=== PATIENT | male | born 1970 | race Caucasian/White ===

== ENCOUNTER → 2020-04-14 12:03 | Outpatient (CLI) | payer OTHER, SELFPAY ==
--- NOTE | ~2020-04-14 | XR_ITS ---
EXAMINATION: XR hand RT 2V, XR wrist RT w scaphoid EXAM DATE: 04/14/2020 12:45 INDICATION: Having pain in right hand/wrist/forearm and elbow x couple weeks after weight-lifting. Pa in mostly located around 1st carpal/metacarpal area. No surgery. TECHNIQUE: Right wrist frontal, frontal with ulnar deviation, oblique and lateral projections obtain ed and reviewed. Right hand frontal and lateral projections. There are no prior studies for compariso n. FINDINGS: Right wrist scapholunate joint space is maintained. There are no acute hand or wrist fractu res or dislocations identified. There is no subcutaneous gas. The soft tissue is unremarkable. Th ere are no radiopaque foreign bodies. IMPRESSION: 1. Unremarkable right hand, wrist exam. Reviewed, dictated and finalized at location A. S MECHANIC IMPRESSION: 1. Unremarkable right hand, wrist exam.
--- NOTE | ~2020-04-14 | XR_ITS ---
EXAMINATION: XR elbow RT 2V EXAM DATE: 04/14/2020 12:44 INDICATION: Right elbow pain. TECHNIQUE: Frontal and lateral projections of the right elbow. There is no prior study for comparis on. FINDINGS: No joint effusion. There are no acute fractures or dislocations identified. There is no s ubcutaneous gas. The soft tissue is unremarkable. There are no radiopaque foreign bodies. IMPRESSION: 1. Unremarkable right elbow exam. Reviewed, dictated and finalized at location A. [employer]
== END ==
PROVIDERS: PCP Family Medicine; Visit Provider Physician Assistant
DX: M79.631 Pain in right forearm (principal); M79.646 Pain in unspecified finger(s)
CPT/HCPCS: 73070; 73110; 73120

== ENCOUNTER 2023-07-19 08:11 | Day surgery (SDC) | payer OTHER, SELFPAY ==
[2023-07-05 13:57] VITALS: BMI 28.8
--- NOTE | 2023-07-19 08:01 | P.PNAN_ITS ---
Anes - Initial Pre Proc Eval Procedure: Operation Date: 07/19/23 10:30 Proposed Procedures p Diagnostic Colonoscopy - You Park MD Date/Time: 07/19/23 08:01 Surgeon: You Park MD Pre Op Diagnosis: Neoplasia Screening Patient Data Age: 53 Gender: M Height: 1.73 m Weight: 86 kg Allergies Allergy/AdvReac Type Severity Reaction Status Date / Time No Known Allergies Allergy Verified 07/19/23 09:19 Home Medications Medication Instructions Recorded Confirmed Type testosterone 1 % (25 mg/2.5 gram) 1 packet transdermal DAILY #75 10/04/21 07/19/23 Rx transdermal gel packet grams atorvastatin 10 mg tablet 10 mg PO DAILY #90 tabs 01/31/23 07/19/23 Rx omeprazole 40 mg capsule,delayed See Rx Instructions .Route 01/31/23 07/19/23 Rx release .COMPLEX #90 caps Patient hx anesthesia problems: none Family hx anesthesia problems: none Results Review: All pre-operative results and documents have been reviewed as part of the pre- operative evaluation. [facility] Past Medical History Medical History (Updated 07/19/23 @ 09:38 by You Park MD) Diverticulitis Gastroesophageal reflux disease Hyperlipidemia Migraine Surgical History Surgical History (Updated 07/19/23 @ 08:02 by Payam Brasher DO) History of tonsillectomy S/P laparoscopic-assisted sigmoidectomy Family History Family History Sibling No family history of hypertension Malignant neoplasm of prostate Father Family history of elevated blood lipids Mother Family history of elevated blood lipids Other Family history of cardiovascular disease Hypertension Social History Social History Smoking status: Never smoker Alcohol intake: current Drinks per week: 4 Substance use: never Substance use type: does not use Living arrangements: with family Occupation/Education: occupation Gender identity (if verbalized by the patient): Male Spiritual care concerns: No Anes - Eval Final PreProcedure Day of Procedure 07/19/23 08:01 Patient weight: overweight Heart: regular rate and rhythm Lungs: clear to auscultation Airway: Mallampati scale class II Neurological: alert and oriented Last oral intake: >/= 8 hours ASA classification: II Emergent: no Anesthetic plan: proceed Anesthesia type and monitoring: general GIVS and standard monitoring Results Review: All pre-operative results and documents have been reviewed as part of the pre- operative evaluation. Informed Consent: The patient's anesthetic plan and its attendant risks and benefits were discussed with the patient/family/POA. Questions were solicited and answers provided to the satisfaction of the patient/family/POA.
[2023-07-19 09:20] VITALS: BMI 29.1
[2023-07-19 09:24] VITALS: BP 130/73; PULSE 80; RESP 16; TEMP 37.6; O2SAT 98
--- NOTE | 2023-07-19 09:36 | PM.HPGS ---
History of Present Illness History of Present Illness Consent: Risks, benefits, and alternatives have been discussed and questions answered. Patient agrees to proceed with procedure. Chief complaint: Neoplasia Screening Narrative: Mandeep Chavez is a 53 year old male presents for screening colonoscopy. Patient's current weight appetite and bowel movements are normal. Patient denies abdominal pain. He has had no bleeding. Family history noncontributory. Previous colonoscopy by Dr. Wilde in 2011 was unremarkable. Patient did have diverticular disease about 10 years ago had sigmoid resection because of diverticulitis. Bowel habits the normal in fact patient occasionally has constipation. He has no bleeding. Review of Systems Review of Systems: Review of systems is noncontributory. [facility] Past Medical History Medical History (Updated 07/19/23 @ 09:38 by You Park MD) Diverticulitis Gastroesophageal reflux disease Hyperlipidemia Migraine Surgical History Surgical History (Updated 07/19/23 @ 08:02 by Payam Brasher DO) History of tonsillectomy S/P laparoscopic-assisted sigmoidectomy Family History Family History Sibling No family history of hypertension Malignant neoplasm of prostate Father Family history of elevated blood lipids Mother Family history of elevated blood lipids Other Family history of cardiovascular disease Hypertension Social History Social History Smoking status: Never smoker Alcohol intake: current Drinks per week: 4 Substance use: never Substance use type: does not use Living arrangements: with family Occupation/Education: occupation Gender identity (if verbalized by the patient): Male Spiritual care concerns: No Meds Home Medications and Allergies Home Medications Medication Instructions Recorded Confirmed Type testosterone 1 % (25 mg/2.5 gram) 1 packet transdermal DAILY #75 10/04/21 07/19/23 Rx transdermal gel packet grams atorvastatin 10 mg tablet 10 mg PO DAILY #90 tabs 01/31/23 07/19/23 Rx omeprazole 40 mg capsule,delayed See Rx Instructions .Route 01/31/23 07/19/23 Rx release .COMPLEX #90 caps Allergies Allergy/AdvReac Type Severity Reaction Status Date / Time No Known Allergies Allergy Verified 07/19/23 09:19 Vital Signs Vital Signs - 24 hr 07/19/23 09:24 Temperature 99.7 F H Pulse Rate 80 Respiratory Rate 16 Blood Pressure 130/73 Pulse Oximetry 98 Oxygen Delivery Room Air Exam Narrative: Physical exam reveals patient to be alert. Vital signs stable. HEENT is unremarkable. Patient is anicteric. Lungs are clear to auscultation and percussion. Heart is without murmur or extra sounds. Abdomen bowel sounds are present soft nontender with no organomegaly. Digital external rectal exam normal. Assessment and Plan Assessment and plan (1) Encounter for screening colonoscopy: Code(s): Z12.11 - Encounter for screening for malignant neoplasm of colon Status: Acute Assessment and Plan: Patient presents today for screening colonoscopy. He appears to be at average risk for colon polyps.
[2023-07-19] MEDS: LACTATED RINGERS 1,000 ML 150 ML IV CONT (09:48)
[2023-07-19 10:30] VITALS: BP 115/73; PULSE 71; RESP 16; O2SAT 96
[2023-07-19 10:40] VITALS: BP 115/73; PULSE 70; RESP 15; O2SAT 100
[2023-07-19 10:50] VITALS: BP 118/75; O2SAT 99
--- NOTE | 2023-07-19 13:21 | WPDANESPN ---
Anes - Prog Note Post-Op Date/Time: 07/19/23 13:21 Cardiovascular status: normal Respiratory status: normal Airway patency: baseline Mental status: baseline Post-Op hydration status: normal Vital Signs: Last Vital Signs Temp 37.6 C H 07/19/23 09:24 Pulse 70 07/19/23 10:40 Resp 15 07/19/23 10:40 BP 118/75 07/19/23 10:50 Pulse Ox 99 07/19/23 10:50 O2 Del Method Room Air 07/19/23 10:50 Pain Score (VAS): 0 I/O: Intake & Output 07/18/23 07/19/23 07/19/23 23:59 07:59 15:59 Intake Total 200 Balance 200 Post-procedural complaints: none Patient Feedback: Patient satisfied with anesthetic care. Other Findings: Patient vital signs back to baseline. Patient denies nausea and vomiting. Patient's pain under control. Patient OK for discharge.
== END 2023-07-19 11:30 | disposition home or self-care (01) ==
PROVIDERS: PCP Family Medicine; Visit Provider Internal Medicine Gastroenterology
PROC: 0DJD8ZZ Inspection of Lower Intestinal Tract, Via Natural or Artificial Opening Endoscopic (ICD-10-PCS; CPT 45378; principal; 2023-07-19 10:30)
DX: Z12.11 Encounter for screening for malignant neoplasm of colon (principal); K64.8 Other hemorrhoids
CPT/HCPCS: 45378